=== PATIENT | male | born 1995 | race Caucasian/White ===

== ENCOUNTER 2020-04-05 17:51 | Emergency (ER) | payer MEDICAID ==
[~2020-04-05] VITALS: Ht 172.7 cm; Wt 95.3 kg
[2020-04-05 18:01] VITALS: Ht 172.7 cm; Wt 95.3 kg
[2020-04-05 18:59] VITALS: BP 137/81
== END 2020-04-05 18:59 | disposition home or self-care (01) ==
LOC: ED 17:51
DX: S01.01XA Laceration without foreign body of scalp, initial encounter (principal); W22.8XXA Striking against or struck by other objects, initial encounter; Y93.89 Activity, other specified; Y92.89 Other specified places as the place of occurrence of the external cause; Y99.8 Other external cause status
CPT/HCPCS: 90715

== ENCOUNTER 2020-04-12 07:19 | Emergency (ER) | payer MEDICAID ==
[~2020-04-12] VITALS: Ht 170.2 cm; Wt 94.8 kg
[2020-04-12 07:28] VITALS: BP 136/76; Ht 170.2 cm; Wt 94.8 kg
== END 2020-04-12 09:42 | disposition home or self-care (01) ==
LOC: ED 07:19
DX: S01.01XD Laceration without foreign body of scalp, subsequent encounter (principal); X58.XXXD Exposure to other specified factors, subsequent encounter